=== PATIENT | female | born 1990 | race Caucasian/White ===

== ENCOUNTER 2019-02-11 03:30 | Emergency (ER) | payer BC ==
[2019-02-11] MEDS ORDERED: Ondansetron 4 MG/2 ML SDV IVPUSH ONE ×2 (04:02→08:56)
[2019-02-11] MEDS ORDERED: Morphine 4 MG/ML Syringe IVPUSH ONE ×2 (04:02→08:40)
[2019-02-11] MEDS ORDERED: Sodium Chloride 0.9% 1,000 ML IV ONE ×2 (04:02→08:40)
[2019-02-11] MEDS: Sodium Chloride 0.9% 10 ML Syringe FLUSH PRN ×2 (04:08→09:22)
[2019-02-11 04:22] LABS: CHLORIDE,CL 106 mmol/L (98-107); SODIUM,NA 144 mmol/L (136-145)
[2019-02-11] MEDS ORDERED: Iopamidol 612 MG/ML 50 ML SDV IVPUSH ONE (05:00)
--- NOTE | 2019-02-11 09:19 | EDM.PDOC ---
ED HPI GENERAL MEDICAL PROBLEM - General Chief Complaint: Abdominal Pain Stated Complaint: abdominal pain Time Seen by Provider: 02/11/19 03:54 Source of Information: Reports: Patient, Family History Limitations: Reports: Language Barrier - History of Present Illness INITIAL COMMENTS - FREE TEXT/NARRATIVE: Patient comes to ER with complaint of 6 day history RUQ pain. Pain does not radiate. It has been constant. Significant language barrier. Patient and her S.O. speak [place]. Difficult to perform full ROS. No apparent fevers/chills. Has had nausea/emesis. Does not appear to have had HEENT/chest/Resp//Neuro changes. Nothing specifically makes pain any better. They deny patient has chronic medical problems. RUQ Pain Score (Numeric/FACES): 6 - Related Data Allergies Allergy/AdvReac Type Severity Reaction Status Date / Time No Known Allergies Allergy Verified 02/11/19 03:44 Home Meds: Home Meds Pnv No.122/Iron/Folic Acid [ Multi Tablet] 1 each PO DAILY 02/11/19 [ History] Social & Family History - Tobacco Use Smoking Status *Q: Never Smoker Second Hand Smoke Exposure: No - Recreational Drug Use Recreational Drug Use: No ED ROS GENERAL - Review of Systems Review Of Systems: ROS reveals no pertinent complaints other than HPI. ED EXAM, GI/ABD - Physical Exam Exam: See Below Exam Limited By: No Limitations General Appearance: Alert, WD/WN, Mild Distress Eyes: Bilateral: Normal Appearance, EOMI Ears: Normal External Exam Nose: No: Nasal Deformity, Nasal Swelling, Nasal Drainage Throat/Mouth: Normal Lips, Normal Voice, No Airway Compromise Head: Atraumatic, Normocephalic Neck: Supple, Non-Tender Respiratory/Chest: No Respiratory Distress, Lungs Clear, Normal Breath Sounds, No Accessory Muscle Use, Chest Non-Tender Cardiovascular: Normal Peripheral Pulses, Regular Rate, Rhythm, No Edema, No Murmur GI/Abdominal Exam: Normal Bowel Sounds, Soft, No Distention, Tender (RUQ ). No : Guarding, Mass, Hepatomegaly (Female) Exam: Deferred Rectal (Female) Exam: Deferred Back Exam: CVA Tenderness (R) Extremities: Normal Inspection, Normal Capillary Refill Neurological: Alert, No Motor/Sensory Deficits Psychiatric: Normal Affect, Normal Mood Skin Exam: Warm, Dry, Intact, Normal Color Course - Vital Signs Last Recorded V/S: Last Vital Signs Temp 36.2 C 02/11/19 09:15 Pulse 61 02/11/19 09:15 Resp 14 02/11/19 09:15 BP 114/71 02/11/19 09:15 Pulse Ox 100 02/11/19 09:15 - Orders/Labs/Meds Labs: Laboratory Tests 02/11/19 02/11/19 02/11/19 Range/Units 03:55 03:55 03:55 WBC 7.1 (4.0-10.2) K/uL RBC 4.46 (3.77-5.09) M/uL Hgb 13.4 (11.7-15.5) g/dL Hct 38.5 (34.0-46.0) % MCV 86.3 (84.0-98.0) fL MCH 30.0 (28.2-33.3) pg MCHC 34.8 (31.7-36.0) g/dL RDW 12.4 (11.2-14.1) % Plt Count 228 (150-350) K/uL Neut % (Auto) 61.9 (45.0-80.0) % Lymph % (Auto) 30.6 (10.0-50.0) % [place] % (Auto) 5.8 (2.0-14.0) % Eos % (Auto) 1.6 (0.0-5.0) % Baso % (Auto) 0.1 (0.0-2.0) % Neut # (Auto) 4.36 (1.40-7.00) K/uL Lymph # (Auto) 2.16 (0.50-3.50) K/uL [place] # (Auto) 0.41 (0.00-1.00) K/uL Eos # (Auto) 0.11 (0.00-0.50) K/uL Baso # (Auto) 0.01 (0.00-0.20) K/uL Sodium 144 (136-145) mmol/L Potassium 3.3 L (3.5-5.1) mmol/L Chloride 106 (98-107) mmol/L Carbon Dioxide 26.5 (21.0-32.0) mmol/L BUN 14 (7-18) mg/dL Creatinine 0.62 (0.51-1.17) mg/dL Est Cr Clr Drug Dosing 119.39 mL/min Estimated GFR (MDRD) > 60 mL/min Glucose 108 H (74-106) mg/dL Calcium 9.3 (8.5-10.1) mg/dL Total Bilirubin 0.3 (0.2-1.0) mg/dL AST 75 H (15-37) U/L ALT 40 (12-78) U/L Alkaline Phosphatase 157 H (46-116) IU/L Total Protein 7.7 (6.4-8.2) g/dL Albumin 3.9 (3.4-5.0) g/dL Amylase 73 (25-115) U/L Lipase 163 (73-393) U/L HCG, Qual Negative (NEGATIVE) Specimen Type Urine Color Urine Appearance Urine pH (5.0-9.0) Ur Specific [place] (1.005-1.030) Urine Protein (NEGATIVE) mg/dL Urine Glucose (UA) (NEGATIVE) mg/dL Urine Ketones (NEGATIVE) mg/dL Urine Occult Blood (NEGATIVE) Urine Nitrite (NEGATIVE) Urine Bilirubin (NEGATIVE) Urine Urobilinogen (0.2-1.0) E.U./dL Ur Leukocyte Esterase (NEGATIVE) Urine RBC /HPF Urine WBC /HPF Ur Epithelial Cells /LPF Urine Bacteria (NONE TO FEW) /HPF 02/11/19 Range/Units 06:10 WBC (4.0-10.2) K/uL RBC (3.77-5.09) M/uL Hgb (11.7-15.5) g/dL Hct (34.0-46.0) % MCV (84.0-98.0) fL MCH (28.2-33.3) pg MCHC (31.7-36.0) g/dL RDW (11.2-14.1) % Plt Count (150-350) K/uL Neut % (Auto) (45.0-80.0) % Lymph % (Auto) (10.0-50.0) % [place] % (Auto) (2.0-14.0) % Eos % (Auto) (0.0-5.0) % Baso % (Auto) (0.0-2.0) % Neut # (Auto) (1.40-7.00) K/uL Lymph # (Auto) (0.50-3.50) K/uL [place] # (Auto) (0.00-1.00) K/uL Eos # (Auto) (0.00-0.50) K/uL Baso # (Auto) (0.00-0.20) K/uL Sodium (136-145) mmol/L Potassium (3.5-5.1) mmol/L Chloride (98-107) mmol/L Carbon Dioxide (21.0-32.0) mmol/L BUN (7-18) mg/dL Creatinine (0.51-1.17) mg/dL Est Cr Clr Drug Dosing mL/min Estimated GFR (MDRD) mL/min Glucose (74-106) mg/dL Calcium (8.5-10.1) mg/dL Total Bilirubin (0.2-1.0) mg/dL AST (15-37) U/L ALT (12-78) U/L Alkaline Phosphatase (46-116) IU/L Total Protein (6.4-8.2) g/dL Albumin (3.4-5.0) g/dL Amylase (25-115) U/L Lipase (73-393) U/L HCG, Qual (NEGATIVE) Specimen Type Urincc Urine Color Yellow Urine Appearance Clear Urine pH 7.0 (5.0-9.0) Ur Specific [place] 1.015 (1.005-1.030) Urine Protein Negative (NEGATIVE) mg/dL Urine Glucose (UA) Negative (NEGATIVE) mg/dL Urine Ketones Negative (NEGATIVE) mg/dL Urine Occult Blood Negative (NEGATIVE) Urine Nitrite Negative (NEGATIVE) Urine Bilirubin Negative (NEGATIVE) Urine Urobilinogen 1.0 (0.2-1.0) E.U./dL Ur Leukocyte Esterase Small H (NEGATIVE) Urine RBC 0-5 /HPF Urine WBC 5-10 H /HPF Ur Epithelial Cells Few /LPF Urine Bacteria Few (NONE TO FEW) /HPF Meds: Medications Discontinued Medications Generic Name Dose Route Start Last Admin Trade Name Freq PRN Reason Stop Dose Admin Sodium Chloride 1,000 mls @ 500 mls/hr 02/11/19 04:02 02/11/19 04:08 Normal Saline IV 02/11/19 06:01 500 mls/hr .BOLUS ONE Administration Sodium Chloride 1,000 mls @ 250 mls/hr 02/11/19 08:40 02/11/19 06:48 Normal Saline IV 02/11/19 12:39 250 mls/hr .BOLUS ONE Administration Iopamidol 100 ml 02/11/19 05:00 02/11/19 06:31 Isovue-300 (61%) IVPUSH 02/11/19 05:01 100 ml ONETIME ONE Administration Morphine Sulfate 4 mg 02/11/19 04:02 02/11/19 04:18 Morphine IVPUSH 02/11/19 04:03 4 mg ONETIME ONE Administration Morphine Sulfate 4 mg 02/11/19 08:40 02/11/19 09:05 Morphine IVPUSH 02/11/19 08:41 4 mg ONETIME ONE Administration Ondansetron HCl 4 mg 02/11/19 04:02 02/11/19 04:08 Zofran IVPUSH 02/11/19 04:03 4 mg ONETIME ONE Administration Ondansetron HCl 4 mg 02/11/19 08:56 02/11/19 09:05 Zofran IVPUSH 02/11/19 08:57 4 mg ONETIME ONE Administration Sodium Chloride 10 ml 02/11/19 03:46 02/11/19 09:22 Saline Flush FLUSH 10 ml ASDIRECTED PRN Administration Keep Vein Open - Radiology Interpretation CT Results Date: 02/11/19 CT Results Time: 06:45 - Re-Assessments/Exams Free Text/Narrative Re-Assessment/Exam: 02/11/19 09:24 WBC normal. Mild elevation noted AST and alk phos. Potassium 3.3 negative HCG UA showed no evidence of UTI. MS and IV fluids given. Patient more comfortable. CT of abdomen obtained. Noted to by Radiology to be suggestive of Cholelithiasis with mild inflammatory changes. Increased overall stool also noted. It was ultimately decided to have patient transferred to [facility] for further care. They have translators on staff and quicker access to surgical consultation. Patient accepted by for transfer to [facility]. She elected to go by private car. will be driving. Precautions reviewed, including for patient to stay NPO except for water. Departure - Departure Time of Disposition: 08:54 Disposition: DC/Tfer to Acute Hospital 02 Condition: Good Clinical Impression: Cholecystitis - Discharge Information *PRESCRIPTION DRUG MONITORING PROGRAM REVIEWED*: Not Applicable *COPY OF PRESCRIPTION DRUG MONITORING REPORT IN PATIENT [place]: Not Applicable Referrals: PCP,None [Primary Care Provider] - Forms: ED Department Discharge Additional Instructions: Drive directly to [facility]. You will be admitted there. Do NOT e
== END 2019-02-11 09:35 ==
LOC: LL.ED 03:30
DX: K80.20 Calculus of gallbladder without cholecystitis without obstruction (principal)
CPT/HCPCS: 36415; 74177; 80053; 81001; 82150; 83690; 84703; 85025; 96361; 96374; 96375; 96376; 99285-25; J2270; J2405; J7030; Q9967